=== PATIENT | male | born 1965 | race African-American/Black ===

== ENCOUNTER 2020-10-18 22:36 | Inpatient (IN) ==
[2020-10-18] MEDS ORDERED: ONDANSETRON 4 MG/2 ML VIAL IV STA (23:02)
[2020-10-19 01:10] LABS: INR 1.1; PT Patient Result 11.4 SECS (9.8-11.9)
[2020-10-19 01:21] LABS: Basophils % 0.4 % (0.0-0.8); Eosinophils # 0.1 10*3/uL (0.0-0.87); Eosinophils % 2.2 % (0.00-10.9); Hematocrit 21.7 VOL% (42.0-52.0); Immature Granulocytes % 0.4 %; Immature Granulocytes Absolute 0.02 #; Lymphocytes # 0.6 10*3/uL (1.4-4.0); Lymphocytes % 13.5 % (21.2-54.2); Mean Corpuscular HGB Conc 32.3 GM/DL (32-36); Mean Corpuscular Volume 96.9 FL (87-102); Mean Platelet Volume 11.2 FL (9.6-12.0); Monocytes % 6.7 % (1.7-12.7); Neutrophils % 76.8 % (38.7-73.9); Platelet Count 120 T/CUMM (130-400); Red Blood Count 2.24 MC/CUMM (3.8-5.5); Red Cell Distribution Width 16.4 % (9.3-17.3); White Blood Count 4.7 T/CUMM (4-12)
[2020-10-19 01:40] LABS: Albumin 3.9 G/DL (3.4-5.0); Bilirubin,Total 1.1 MG/DL (0.2-1.0); CKMB % 6.7 %; Calcium 10.6 MG/DL (8.5-10.1)
[2020-10-19 01:43] LABS: Troponin I 0.122 NG/ML (0.00-0.045)
[2020-10-19 01:44] LABS: Osmolality,Calculated 340.1 MOS/KG (273-304)
[2020-10-19] MEDS ORDERED: CALCIUM CHLORIDE 1,000 MG/10 ML SYRINGE IV STA ×2 (01:51→02:04)
[2020-10-19] MEDS ORDERED: INSULIN REGULAR 10 UNIT, CALCIUM GLUCONATE 1,000 MG in DEXTROSE 10% 250 ML IV ONE (01:53)
[2020-10-19] MEDS ORDERED: hydrALAZINE 20 MG/1 ML VIAL IV STA ×2 (02:10→02:12)
[2020-10-19] MEDS ORDERED: GLUCAGON 1 MG VIAL IM PRN (03:12)
[2020-10-19] MEDS ORDERED: DEXTROSE 50% 25 GM/50 ML VIAL IV PRN (03:12)
[2020-10-19] MEDS ORDERED: hydrALAZINE 20 MG/1 ML VIAL IV PRN (03:27)
[2020-10-19] MEDS ORDERED: guaiFENesin/DM ER 600-30 MG TABLET PO PRN (03:27)
[2020-10-19] MEDS ORDERED: NICOTINE 21 MG/24 HR PATCH TRANSDERM PRN (03:27)
[2020-10-19 04:44] LABS: Bacteria,Urine Few /HPF (Few); Bilirubin,Urine Negative (Negative); Blood, Urine Large mg/dL (Negative); Glucose,Urine (UA) Negative (Negative); Ketones,Urine Negative (Negative); Nitrite,Urine Negative (Negative); Protein,Urine 100 MG/DL; RBC,Urine 53 /HPF (0-4); Squamous Epithelial Cell,Urine Occasional /HPF (0-10); Urine Appearance CLOUDY (Clear); Urine Color Yellow (Yellow); Urine Specific Gravity 1.012 (1.001-1.035); Urine Urobilinogen < 2.0 EU/DL (0.2-1.0); WBC,Urine 82 /HPF (0-6)
[2020-10-19] MEDS ORDERED: SODIUM POLYSTYRENE SULFATE 15 GM/60 ML BOTTLE PO ONE (06:01)
[2020-10-19] MEDS: diphenhydrAMINE CAP 25 MG CAPSULE PO PRN (06:37)
[2020-10-19] MEDS ORDERED: SODIUM CHLORIDE 0.9% 1,000 ML IV PRN (07:16)
[2020-10-19] MEDS: cefTRIAXone 1,000 MG in SYRINGE 1 EACH IV SCH (07:48)
[2020-10-19 08:29] LABS: Basophils % 0.6 % (0.0-0.8); Eosinophils # 0.1 10*3/uL (0.0-0.87); Hemoglobin 6.8 GM/DL (14.0-18.0); Immature Granulocytes % 0.2 %; Immature Granulocytes Absolute 0.01 #; Lymphocytes # 0.5 10*3/uL (1.4-4.0); Lymphocytes % 9.9 % (21.2-54.2); Mean Corpuscular HGB Conc 32.4 GM/DL (32-36); Mean Corpuscular Volume 97.7 FL (87-102); Mean Platelet Volume 12.1 FL (9.6-12.0); Monocytes % 6.6 % (1.7-12.7); Neutrophils % 81.7 % (38.7-73.9); Platelet Count 102 T/CUMM (130-400); Red Blood Count 2.15 MC/CUMM (3.8-5.5); Red Cell Distribution Width 16.6 % (9.3-17.3); White Blood Count 4.8 T/CUMM (4-12)
[2020-10-19 09:11] LABS: Folate > 24.0 NG/ML (5.4-24.0); Vitamin B12 1006 PG/ML (211-911)
[2020-10-19 10:40] LABS: Ferritin 843.7 ng/ml (26-388)
[2020-10-19] MEDS ORDERED: HEPARIN 10,000 UNIT/10 ML VIAL IV SCH (11:00)
[2020-10-19 11:09] LABS: Calcium 10.7 MG/DL (8.5-10.1)
[2020-10-19 11:36] LABS: Hepatitis B Core IgM Quant 0.08 Index; Hepatitis B Surface Ag Quant < 0.10 Index; Hepatitis B Surface Ag Result Negative (Negative); Hepatitis C Virus Ab Quant < 0.02 Index; Hepatitis C Virus Ab Result Negative (Negative)
[2020-10-19] MEDS ORDERED: TUBERCULIN SKIN TEST 0.1 ML SYRINGE INTRADERM ONE (14:08)
[2020-10-19 15:34] LABS: Albumin 3.5 G/DL (3.4-5.0); Bilirubin,Total 0.8 MG/DL (0.2-1.0); Calcium 9.7 MG/DL (8.5-10.1); Osmolality,Calculated 309.8 MOS/KG (273-304); Total Protein 6.6 G/DL (6.4-8.3)
[2020-10-20] MEDS ORDERED: IRON SUCROSE 100 MG/5 ML VIAL IV SCH (07:30)
[2020-10-20] MEDS: cefTRIAXone 1,000 MG in SYRINGE 1 EACH IV SCH (09:12)
[2020-10-20] MEDS: ERGOCALCIFEROL 50,000 UNIT CAPSULE PO SCH (17:46)
[2020-10-20] MEDS: DULoxetine 20 MG CAPSULE PO SCH (20:36)
[2020-10-20] MEDS: GABAPENTIN 100 MG CAPSULE PO SCH (20:36)
[2020-10-20] MEDS: carvediloL 25 MG TABLET PO SCH (20:37)
[2020-10-21] MEDS: ASPIRIN EC 81 MG TABLET PO SCH (09:10)
[2020-10-21] MEDS: cefTRIAXone 1,000 MG in SYRINGE 1 EACH IV SCH (09:10)
[2020-10-21] MEDS: MULTIVITAMIN (BEROCCA) TABLET PO SCH (09:10)
[2020-10-21] MEDS: GABAPENTIN 100 MG CAPSULE PO SCH ×3 (09:10→21:42)
[2020-10-21] MEDS: ONDANSETRON 4 MG/2 ML VIAL IV PRN (09:14)
[2020-10-21] MEDS: carvediloL 25 MG TABLET PO SCH ×2 (09:14→21:42)
[2020-10-21 11:29] LABS: Basophils % 0.3 % (0.0-0.8); Eosinophils % 1.2 % (0.00-10.9); Hematocrit 28.7 VOL% (42.0-52.0); Hemoglobin 9.8 GM/DL (14.0-18.0); Immature Granulocytes % 0.3 %; Immature Granulocytes Absolute 0.01 #; Lymphocytes # 0.2 10*3/uL (1.4-4.0); Lymphocytes % 6.8 % (21.2-54.2); Mean Corpuscular HGB Conc 34.1 GM/DL (32-36); Mean Corpuscular Volume 92.3 FL (87-102); Mean Platelet Volume 11.7 FL (9.6-12.0); Monocytes % 6.5 % (1.7-12.7); Neutrophils % 84.9 % (38.7-73.9); Platelet Count 83 T/CUMM (130-400); Red Blood Count 3.11 MC/CUMM (3.8-5.5); Red Cell Distribution Width 15.8 % (9.3-17.3); White Blood Count 3.2 T/CUMM (4-12)
[2020-10-21 11:51] LABS: Calcium 9.2 MG/DL (8.5-10.1); Osmolality,Calculated 296.7 MOS/KG (273-304)
[2020-10-21] MEDS: DICLOFENAC 1% GEL 100 GM TUBE TOP SCH ×2 (15:38→21:42)
[2020-10-21] MEDS: DULoxetine 20 MG CAPSULE PO SCH (21:42)
[2020-10-22] MEDS: cefTRIAXone 1,000 MG in SYRINGE 1 EACH IV SCH (08:59)
[2020-10-22] MEDS: GABAPENTIN 100 MG CAPSULE PO SCH ×3 (09:00→21:42)
[2020-10-22] MEDS: carvediloL 25 MG TABLET PO SCH ×2 (09:00→21:36)
[2020-10-22] MEDS: ASPIRIN EC 81 MG TABLET PO SCH (09:00)
[2020-10-22] MEDS: MULTIVITAMIN (BEROCCA) TABLET PO SCH (09:00)
[2020-10-22] MEDS: DICLOFENAC 1% GEL 100 GM TUBE TOP SCH ×3 (09:01→21:43)
[2020-10-22] MEDS: diphenhydrAMINE CAP 25 MG CAPSULE PO PRN (21:42)
[2020-10-22] MEDS: DULoxetine 20 MG CAPSULE PO SCH (21:42)
[2020-10-23 07:28] LABS: Basophils % 0.4 % (0.0-0.8); Eosinophils # 0.1 10*3/uL (0.0-0.87); Eosinophils % 1.9 % (0.00-10.9); Hematocrit 24.8 VOL% (42.0-52.0); Hemoglobin 8.2 GM/DL (14.0-18.0); Immature Granulocytes % 0.6 %; Immature Granulocytes Absolute 0.03 #; Lymphocytes # 0.6 10*3/uL (1.4-4.0); Lymphocytes % 12.7 % (21.2-54.2); Mean Corpuscular HGB Conc 33.1 GM/DL (32-36); Mean Platelet Volume 11.6 FL (9.6-12.0); Monocytes % 9.4 % (1.7-12.7); Platelet Count 109 T/CUMM (130-400); Red Blood Count 2.61 MC/CUMM (3.8-5.5); Red Cell Distribution Width 15.9 % (9.3-17.3); White Blood Count 4.8 T/CUMM (4-12)
[2020-10-23 07:42] LABS: Osmolality,Calculated 304.5 MOS/KG (273-304)
[2020-10-23] MEDS: carvediloL 25 MG TABLET PO SCH (09:16)
[2020-10-23] MEDS: DICLOFENAC 1% GEL 100 GM TUBE TOP SCH ×3 (09:16→22:34)
[2020-10-23] MEDS: MULTIVITAMIN (BEROCCA) TABLET PO SCH (09:16)
[2020-10-23] MEDS: ASPIRIN EC 81 MG TABLET PO SCH (09:17)
[2020-10-23] MEDS: GABAPENTIN 100 MG CAPSULE PO SCH ×3 (09:17→21:05)
[2020-10-23] MEDS: cefTRIAXone 1,000 MG in SYRINGE 1 EACH IV SCH (09:18)
[2020-10-23] MEDS: DULoxetine 20 MG CAPSULE PO SCH (21:05)
[2020-10-23] MEDS: carvediloL 12.5 MG TABLET PO SCH (21:12)
[2020-10-23] MEDS: hydrALAZINE 25 MG TABLET PO SCH (21:12)
[2020-10-24] MEDS: MIDODRINE 5 MG TABLET PO PRN (08:57)
[2020-10-24 09:40] LABS: Basophils % 0.2 % (0.0-0.8); Eosinophils # 0.1 10*3/uL (0.0-0.87); Eosinophils % 2.1 % (0.00-10.9); Hematocrit 23.5 VOL% (42.0-52.0); Hemoglobin 7.7 GM/DL (14.0-18.0); Immature Granulocytes % 0.2 %; Immature Granulocytes Absolute 0.01 #; Lymphocytes # 0.8 10*3/uL (1.4-4.0); Lymphocytes % 15.6 % (21.2-54.2); Mean Corpuscular HGB Conc 32.8 GM/DL (32-36); Mean Corpuscular Volume 94.8 FL (87-102); Mean Platelet Volume 11.2 FL (9.6-12.0); Monocytes % 7.3 % (1.7-12.7); Neutrophils % 74.6 % (38.7-73.9); Platelet Count 116 T/CUMM (130-400); Red Blood Count 2.48 MC/CUMM (3.8-5.5); Red Cell Distribution Width 15.9 % (9.3-17.3); White Blood Count 4.8 T/CUMM (4-12)
[2020-10-24 10:01] LABS: Calcium 8.8 MG/DL (8.5-10.1); Osmolality,Calculated 297.5 MOS/KG (273-304)
[2020-10-24] MEDS: ASPIRIN EC 81 MG TABLET PO SCH (13:09)
[2020-10-24] MEDS: GABAPENTIN 100 MG CAPSULE PO SCH ×3 (13:09→21:15)
[2020-10-24] MEDS: MULTIVITAMIN (BEROCCA) TABLET PO SCH (13:09)
[2020-10-24] MEDS: carvediloL 12.5 MG TABLET PO SCH ×2 (13:09→21:18)
[2020-10-24] MEDS: DICLOFENAC 1% GEL 100 GM TUBE TOP SCH ×3 (13:09→21:19)
[2020-10-24] MEDS: hydrALAZINE 25 MG TABLET PO SCH ×2 (13:13→21:18)
[2020-10-24] MEDS: cefTRIAXone 1,000 MG in SYRINGE 1 EACH IV SCH (13:14)
[2020-10-24] MEDS: DULoxetine 20 MG CAPSULE PO SCH (21:15)
[2020-10-25 08:07] LABS: Basophils % 0.2 % (0.0-0.8); Eosinophils # 0.1 10*3/uL (0.0-0.87); Eosinophils % 2.2 % (0.00-10.9); Hematocrit 23.5 VOL% (42.0-52.0); Hemoglobin 7.8 GM/DL (14.0-18.0); Immature Granulocytes % 0.2 %; Immature Granulocytes Absolute 0.01 #; Lymphocytes # 0.8 10*3/uL (1.4-4.0); Lymphocytes % 17.8 % (21.2-54.2); Mean Corpuscular HGB Conc 33.2 GM/DL (32-36); Monocytes % 11.9 % (1.7-12.7); Neutrophils % 67.7 % (38.7-73.9); Platelet Count 105 T/CUMM (130-400); Red Cell Distribution Width 15.9 % (9.3-17.3); White Blood Count 4.6 T/CUMM (4-12)
[2020-10-25 08:35] LABS: Calcium 9.8 MG/DL (8.5-10.1)
[2020-10-25] MEDS: GABAPENTIN 100 MG CAPSULE PO SCH ×3 (10:00→21:39)
[2020-10-25] MEDS: ASPIRIN EC 81 MG TABLET PO SCH (10:00)
[2020-10-25] MEDS: cefTRIAXone 1,000 MG in SYRINGE 1 EACH IV SCH (10:01)
[2020-10-25] MEDS: MULTIVITAMIN (BEROCCA) TABLET PO SCH (10:01)
[2020-10-25] MEDS: carvediloL 12.5 MG TABLET PO SCH ×2 (10:01→21:39)
[2020-10-25] MEDS: hydrALAZINE 25 MG TABLET PO SCH ×2 (10:01→21:41)
[2020-10-25] MEDS: DICLOFENAC 1% GEL 100 GM TUBE TOP SCH ×3 (10:11→21:41)
[2020-10-25] MEDS: DULoxetine 20 MG CAPSULE PO SCH (21:39)
[2020-10-26] MEDS: ASPIRIN EC 81 MG TABLET PO SCH (09:04)
[2020-10-26] MEDS: MULTIVITAMIN (BEROCCA) TABLET PO SCH (09:04)
[2020-10-26] MEDS: GABAPENTIN 100 MG CAPSULE PO SCH ×3 (09:04→21:06)
[2020-10-26] MEDS: DICLOFENAC 1% GEL 100 GM TUBE TOP SCH ×3 (09:05→21:17)
[2020-10-26] MEDS: cefTRIAXone 1,000 MG in SYRINGE 1 EACH IV SCH (09:05)
[2020-10-26] MEDS: MIDODRINE 5 MG TABLET PO PRN (09:07)
[2020-10-26] MEDS: carvediloL 12.5 MG TABLET PO SCH ×2 (15:24→21:06)
[2020-10-26] MEDS: hydrALAZINE 25 MG TABLET PO SCH ×2 (15:24→21:06)
[2020-10-26] MEDS: DULoxetine 20 MG CAPSULE PO SCH (21:06)
[2020-10-27 08:34] LABS: Basophils % 0.4 % (0.0-0.8); Eosinophils # 0.1 10*3/uL (0.0-0.87); Eosinophils % 2.2 % (0.00-10.9); Hemoglobin 7.8 GM/DL (14.0-18.0); Immature Granulocytes % 0.4 %; Immature Granulocytes Absolute 0.02 #; Lymphocytes # 0.8 10*3/uL (1.4-4.0); Lymphocytes % 17.6 % (21.2-54.2); Mean Corpuscular HGB Conc 32.5 GM/DL (32-36); Mean Corpuscular Volume 97.2 FL (87-102); Monocytes % 13.1 % (1.7-12.7); Neutrophils % 66.3 % (38.7-73.9); Platelet Count 117 T/CUMM (130-400); Red Blood Count 2.47 MC/CUMM (3.8-5.5); White Blood Count 4.5 T/CUMM (4-12)
[2020-10-27 08:50] LABS: Calcium 9.8 MG/DL (8.5-10.1); Osmolality,Calculated 280.7 MOS/KG (273-304)
[2020-10-27] MEDS: GABAPENTIN 100 MG CAPSULE PO SCH ×3 (09:21→20:37)
[2020-10-27] MEDS: MULTIVITAMIN (BEROCCA) TABLET PO SCH (09:21)
[2020-10-27] MEDS: DICLOFENAC 1% GEL 100 GM TUBE TOP SCH ×3 (09:21→20:40)
[2020-10-27] MEDS: carvediloL 12.5 MG TABLET PO SCH ×2 (09:21→20:38)
[2020-10-27] MEDS: ASPIRIN EC 81 MG TABLET PO SCH (09:21)
[2020-10-27] MEDS: hydrALAZINE 25 MG TABLET PO SCH ×2 (09:21→20:37)
[2020-10-27] MEDS: ERGOCALCIFEROL 50,000 UNIT CAPSULE PO SCH (17:04)
[2020-10-27] MEDS: DULoxetine 20 MG CAPSULE PO SCH (20:38)
[2020-10-27] MEDS: ZALEPLON 5 MG CAPSULE PO PRN (23:07)
[2020-10-28] MEDS: carvediloL 12.5 MG TABLET PO SCH ×2 (09:13→23:01)
[2020-10-28] MEDS: MULTIVITAMIN (BEROCCA) TABLET PO SCH (09:13)
[2020-10-28] MEDS: GABAPENTIN 100 MG CAPSULE PO SCH ×3 (09:13→23:01)
[2020-10-28] MEDS: ASPIRIN EC 81 MG TABLET PO SCH (09:13)
[2020-10-28] MEDS: hydrALAZINE 25 MG TABLET PO SCH ×2 (09:13→23:01)
[2020-10-28] MEDS: DICLOFENAC 1% GEL 100 GM TUBE TOP SCH ×3 (09:13→23:03)
[2020-10-28] MEDS: MIDODRINE 5 MG TABLET PO PRN (10:53)
[2020-10-28 12:13] LABS: Basophils % 0.5 % (0.0-0.8); Eosinophils # 0.1 10*3/uL (0.0-0.87); Eosinophils % 1.5 % (0.00-10.9); Hematocrit 21.8 VOL% (42.0-52.0); Immature Granulocytes % 0.8 %; Immature Granulocytes Absolute 0.03 #; Lymphocytes # 0.7 10*3/uL (1.4-4.0); Lymphocytes % 17.8 % (21.2-54.2); Mean Corpuscular HGB Conc 32.1 GM/DL (32-36); Mean Corpuscular Volume 97.3 FL (87-102); Mean Platelet Volume 11.8 FL (9.6-12.0); Monocytes % 10.8 % (1.7-12.7); Neutrophils % 68.6 % (38.7-73.9); Platelet Count 118 T/CUMM (130-400); Red Blood Count 2.24 MC/CUMM (3.8-5.5); Red Cell Distribution Width 15.9 % (9.3-17.3)
[2020-10-28 12:38] LABS: Calcium 8.7 MG/DL (8.5-10.1); Osmolality,Calculated 280.4 MOS/KG (273-304)
[2020-10-28] MEDS: DULoxetine 20 MG CAPSULE PO SCH (23:01)
[2020-10-28] MEDS: ZALEPLON 5 MG CAPSULE PO PRN (23:07)
[2020-10-29] MEDS: GABAPENTIN 100 MG CAPSULE PO SCH ×3 (09:27→21:56)
[2020-10-29] MEDS: ASPIRIN EC 81 MG TABLET PO SCH (09:27)
[2020-10-29] MEDS: carvediloL 12.5 MG TABLET PO SCH ×2 (09:27→21:56)
[2020-10-29] MEDS: MULTIVITAMIN (BEROCCA) TABLET PO SCH (09:27)
[2020-10-29] MEDS: hydrALAZINE 25 MG TABLET PO SCH ×3 (09:27→21:57)
[2020-10-29] MEDS: DICLOFENAC 1% GEL 100 GM TUBE TOP SCH ×3 (09:28→21:56)
[2020-10-29] MEDS ORDERED: POTASSIUM CHLORIDE 20 MEQ TABLET PO ONE (10:37)
[2020-10-29] MEDS ORDERED: CALCIUM CARBONATE CHEW 500 MG TABLET PO PRN (10:38)
[2020-10-29] MEDS: ZALEPLON 5 MG CAPSULE PO PRN (21:56)
[2020-10-29] MEDS: DULoxetine 20 MG CAPSULE PO SCH (21:56)
[2020-10-30] MEDS: ASPIRIN EC 81 MG TABLET PO SCH (09:29)
[2020-10-30] MEDS: GABAPENTIN 100 MG CAPSULE PO SCH ×3 (09:29→21:50)
[2020-10-30] MEDS: MULTIVITAMIN (BEROCCA) TABLET PO SCH (09:29)
[2020-10-30] MEDS: hydrALAZINE 25 MG TABLET PO SCH ×2 (09:31→21:55)
[2020-10-30] MEDS: carvediloL 12.5 MG TABLET PO SCH ×2 (09:31→21:50)
[2020-10-30] MEDS: DICLOFENAC 1% GEL 100 GM TUBE TOP SCH ×3 (10:04→21:51)
[2020-10-30] MEDS: ACETAMINOPHEN 325 MG TABLET PO PRN (11:55)
[2020-10-30] MEDS: DULoxetine 20 MG CAPSULE PO SCH (21:50)
[2020-10-31] MEDS: GABAPENTIN 100 MG CAPSULE PO SCH ×3 (08:40→21:16)
[2020-10-31] MEDS: MIDODRINE 5 MG TABLET PO PRN (08:40)
[2020-10-31] MEDS: DICLOFENAC 1% GEL 100 GM TUBE TOP SCH ×3 (09:30→21:17)
[2020-10-31 10:20] LABS: Calcium 9.5 MG/DL (8.5-10.1); Osmolality,Calculated 279.7 MOS/KG (273-304)
[2020-10-31] MEDS: ASPIRIN EC 81 MG TABLET PO SCH (12:58)
[2020-10-31] MEDS: hydrALAZINE 25 MG TABLET PO SCH ×2 (12:58→21:15)
[2020-10-31] MEDS: carvediloL 12.5 MG TABLET PO SCH ×2 (12:58→21:16)
[2020-10-31] MEDS: MULTIVITAMIN (BEROCCA) TABLET PO SCH (12:58)
[2020-10-31] MEDS: DULoxetine 20 MG CAPSULE PO SCH (21:16)
[2020-11-01] MEDS: hydrALAZINE 25 MG TABLET PO SCH ×2 (08:50→20:31)
[2020-11-01] MEDS: carvediloL 12.5 MG TABLET PO SCH ×2 (08:57→20:31)
[2020-11-01] MEDS: ASPIRIN EC 81 MG TABLET PO SCH (08:57)
[2020-11-01] MEDS: GABAPENTIN 100 MG CAPSULE PO SCH ×3 (08:57→20:32)
[2020-11-01] MEDS: DICLOFENAC 1% GEL 100 GM TUBE TOP SCH ×3 (08:57→20:32)
[2020-11-01] MEDS: MULTIVITAMIN (BEROCCA) TABLET PO SCH (08:57)
[2020-11-01] MEDS ORDERED: EPOETIN ALFA-EPBX 10,000 UNIT/ML VIAL IV PRN (17:12)
[2020-11-01] MEDS: DULoxetine 20 MG CAPSULE PO SCH (20:32)
[2020-11-02 08:35] LABS: % Iron Saturation 24.2 % (18-50); Ferritin 716.9 ng/ml (26-388)
[2020-11-02] MEDS: ASPIRIN EC 81 MG TABLET PO SCH (12:36)
[2020-11-02] MEDS: GABAPENTIN 100 MG CAPSULE PO SCH ×3 (12:36→20:15)
[2020-11-02] MEDS: MULTIVITAMIN (BEROCCA) TABLET PO SCH (12:36)
[2020-11-02] MEDS: carvediloL 12.5 MG TABLET PO SCH ×2 (12:36→20:01)
[2020-11-02] MEDS: hydrALAZINE 25 MG TABLET PO SCH ×2 (13:02→20:01)
[2020-11-02] MEDS: DICLOFENAC 1% GEL 100 GM TUBE TOP SCH ×3 (13:05→20:15)
[2020-11-02] MEDS: MIDODRINE 5 MG TABLET PO PRN (16:45)
[2020-11-02] MEDS: DULoxetine 20 MG CAPSULE PO SCH (20:15)
[2020-11-03] MEDS: GABAPENTIN 100 MG CAPSULE PO SCH ×3 (08:39→20:57)
[2020-11-03] MEDS: MULTIVITAMIN (BEROCCA) TABLET PO SCH (08:39)
[2020-11-03] MEDS: ASPIRIN EC 81 MG TABLET PO SCH (08:39)
[2020-11-03] MEDS: hydrALAZINE 25 MG TABLET PO SCH ×2 (08:39→20:58)
[2020-11-03] MEDS: carvediloL 12.5 MG TABLET PO SCH ×2 (08:39→20:58)
[2020-11-03] MEDS: DICLOFENAC 1% GEL 100 GM TUBE TOP SCH ×3 (08:43→21:13)
[2020-11-03] MEDS ORDERED: SODIUM CHLORIDE 0.9% 1,000 ML IV PRN (09:00)
[2020-11-03] MEDS: ERGOCALCIFEROL 50,000 UNIT CAPSULE PO SCH (17:38)
[2020-11-03] MEDS: DULoxetine 20 MG CAPSULE PO SCH (20:58)
[2020-11-04] MEDS: MULTIVITAMIN (BEROCCA) TABLET PO SCH (09:48)
[2020-11-04] MEDS: ASPIRIN EC 81 MG TABLET PO SCH (09:48)
[2020-11-04] MEDS: MIDODRINE 5 MG TABLET PO PRN (09:55)
[2020-11-04] MEDS: carvediloL 12.5 MG TABLET PO SCH ×2 (09:55→22:11)
[2020-11-04] MEDS: GABAPENTIN 100 MG CAPSULE PO SCH ×3 (09:56→22:11)
[2020-11-04] MEDS: hydrALAZINE 25 MG TABLET PO SCH ×2 (09:56→22:11)
[2020-11-04] MEDS: DICLOFENAC 1% GEL 100 GM TUBE TOP SCH ×3 (10:01→21:45)
[2020-11-04] MEDS: diphenhydrAMINE CAP 25 MG CAPSULE PO PRN (14:51)
[2020-11-04] MEDS: DULoxetine 20 MG CAPSULE PO SCH (22:11)
[2020-11-05] MEDS: DICLOFENAC 1% GEL 100 GM TUBE TOP SCH ×3 (09:29→21:57)
[2020-11-05] MEDS: GABAPENTIN 100 MG CAPSULE PO SCH ×3 (09:30→21:42)
[2020-11-05] MEDS: carvediloL 12.5 MG TABLET PO SCH ×2 (09:31→21:42)
[2020-11-05] MEDS: ASPIRIN EC 81 MG TABLET PO SCH (09:31)
[2020-11-05] MEDS: hydrALAZINE 25 MG TABLET PO SCH ×2 (09:31→21:42)
[2020-11-05] MEDS: MULTIVITAMIN (BEROCCA) TABLET PO SCH (09:31)
[2020-11-05] MEDS: LACTULOSE 20 GM/30 ML UDCUP PO PRN (19:05)
[2020-11-05] MEDS: diphenhydrAMINE CAP 25 MG CAPSULE PO PRN (21:42)
[2020-11-05] MEDS: DULoxetine 20 MG CAPSULE PO SCH (21:42)
[2020-11-06] MEDS: MULTIVITAMIN (BEROCCA) TABLET PO SCH (09:57)
[2020-11-06] MEDS: GABAPENTIN 100 MG CAPSULE PO SCH ×3 (09:57→21:49)
[2020-11-06] MEDS: ASPIRIN EC 81 MG TABLET PO SCH (09:57)
[2020-11-06] MEDS: carvediloL 12.5 MG TABLET PO SCH ×2 (09:58→21:49)
[2020-11-06] MEDS: DICLOFENAC 1% GEL 100 GM TUBE TOP SCH ×3 (09:58→21:51)
[2020-11-06] MEDS: hydrALAZINE 25 MG TABLET PO SCH ×2 (09:58→21:50)
[2020-11-06] MEDS: LACTULOSE 20 GM/30 ML UDCUP PO PRN (09:58)
[2020-11-06] MEDS: ACETAMINOPHEN 325 MG TABLET PO PRN (12:15)
[2020-11-06] MEDS: DULoxetine 20 MG CAPSULE PO SCH (21:50)
[2020-11-06] MEDS: diphenhydrAMINE CAP 25 MG CAPSULE PO PRN (21:50)
[2020-11-07] MEDS: MIDODRINE 5 MG TABLET PO PRN (09:08)
[2020-11-07 10:40] LABS: Basophils % 0.5 % (0.0-0.8); Eosinophils # 0.1 10*3/uL (0.0-0.87); Eosinophils % 1.9 % (0.00-10.9); Hematocrit 25.7 VOL% (42.0-52.0); Immature Granulocytes % 0.5 %; Immature Granulocytes Absolute 0.02 #; Lymphocytes # 0.8 10*3/uL (1.4-4.0); Mean Corpuscular HGB Conc 31.1 GM/DL (32-36); Mean Corpuscular Volume 103.2 FL (87-102); Mean Platelet Volume 11.2 FL (9.6-12.0); Monocytes % 7.1 % (1.7-12.7); Platelet Count 120 T/CUMM (130-400); Red Blood Count 2.49 MC/CUMM (3.8-5.5); Red Cell Distribution Width 16.7 % (9.3-17.3); White Blood Count 3.6 T/CUMM (4-12)
[2020-11-07 10:58] LABS: Calcium 9.2 MG/DL (8.5-10.1); Hypochromasia 2+; Osmolality,Calculated 284.4 MOS/KG (273-304)
[2020-11-07] MEDS: MULTIVITAMIN (BEROCCA) TABLET PO SCH (12:39)
[2020-11-07] MEDS: diphenhydrAMINE CAP 25 MG CAPSULE PO PRN (12:39)
[2020-11-07] MEDS: GABAPENTIN 100 MG CAPSULE PO SCH ×3 (12:39→21:49)
[2020-11-07] MEDS: ASPIRIN EC 81 MG TABLET PO SCH (12:39)
[2020-11-07] MEDS: DICLOFENAC 1% GEL 100 GM TUBE TOP SCH ×3 (12:41→21:49)
[2020-11-07] MEDS: carvediloL 12.5 MG TABLET PO SCH ×2 (12:43→21:49)
[2020-11-07] MEDS: hydrALAZINE 25 MG TABLET PO SCH ×2 (12:43→22:30)
[2020-11-07] MEDS: DULoxetine 20 MG CAPSULE PO SCH (21:49)
[2020-11-08] MEDS: ASPIRIN EC 81 MG TABLET PO SCH (08:39)
[2020-11-08] MEDS: GABAPENTIN 100 MG CAPSULE PO SCH ×3 (08:39→21:10)
[2020-11-08] MEDS: MULTIVITAMIN (BEROCCA) TABLET PO SCH (08:39)
[2020-11-08] MEDS: carvediloL 12.5 MG TABLET PO SCH ×2 (08:39→21:11)
[2020-11-08] MEDS: DICLOFENAC 1% GEL 100 GM TUBE TOP SCH ×3 (08:40→21:11)
[2020-11-08] MEDS: hydrALAZINE 25 MG TABLET PO SCH ×2 (08:40→21:11)
[2020-11-08] MEDS: DULoxetine 20 MG CAPSULE PO SCH (21:10)
[2020-11-08] MEDS: ZALEPLON 5 MG CAPSULE PO PRN (22:33)
[2020-11-09] MEDS: MIDODRINE 5 MG TABLET PO PRN (07:38)
[2020-11-09] MEDS: DICLOFENAC 1% GEL 100 GM TUBE TOP SCH ×4 (07:40→21:31)
[2020-11-09] MEDS: diphenhydrAMINE CAP 25 MG CAPSULE PO PRN (09:10)
[2020-11-09 10:07] LABS: Basophils % 0.5 % (0.0-0.8); Eosinophils # 0.1 10*3/uL (0.0-0.87); Eosinophils % 1.9 % (0.00-10.9); Hematocrit 26.2 VOL% (42.0-52.0); Hemoglobin 8.2 GM/DL (14.0-18.0); Immature Granulocytes % 0.3 %; Immature Granulocytes Absolute 0.01 #; Lymphocytes # 0.8 10*3/uL (1.4-4.0); Lymphocytes % 21.5 % (21.2-54.2); Mean Corpuscular HGB Conc 31.3 GM/DL (32-36); Mean Corpuscular Volume 102.7 FL (87-102); Mean Platelet Volume 11.3 FL (9.6-12.0); Monocytes % 9.5 % (1.7-12.7); Neutrophils % 66.3 % (38.7-73.9); Platelet Count 110 T/CUMM (130-400); Red Blood Count 2.55 MC/CUMM (3.8-5.5); Red Cell Distribution Width 17.2 % (9.3-17.3); White Blood Count 3.7 T/CUMM (4-12)
[2020-11-09 10:35] LABS: Calcium 9.1 MG/DL (8.5-10.1); Osmolality,Calculated 281.5 MOS/KG (273-304)
[2020-11-09] MEDS: GABAPENTIN 100 MG CAPSULE PO SCH ×3 (13:17→21:28)
[2020-11-09] MEDS: ASPIRIN EC 81 MG TABLET PO SCH (13:17)
[2020-11-09] MEDS: hydrALAZINE 25 MG TABLET PO SCH ×2 (13:18→21:31)
[2020-11-09] MEDS: MULTIVITAMIN (BEROCCA) TABLET PO SCH (13:18)
[2020-11-09] MEDS: carvediloL 12.5 MG TABLET PO SCH ×2 (13:18→21:31)
[2020-11-09] MEDS: ZALEPLON 5 MG CAPSULE PO PRN (21:28)
[2020-11-09] MEDS: DULoxetine 20 MG CAPSULE PO SCH (21:30)
[2020-11-10 08:49] LABS: Basophils % 0.9 % (0.0-0.8); Eosinophils # 0.1 10*3/uL (0.0-0.87); Eosinophils % 2.3 % (0.00-10.9); Hematocrit 28.1 VOL% (42.0-52.0); Hemoglobin 8.8 GM/DL (14.0-18.0); Immature Granulocytes % 0.3 %; Immature Granulocytes Absolute 0.01 #; Lymphocytes # 0.9 10*3/uL (1.4-4.0); Lymphocytes % 26.1 % (21.2-54.2); Mean Corpuscular HGB Conc 31.3 GM/DL (32-36); Mean Corpuscular Volume 102.6 FL (87-102); Mean Platelet Volume 11.4 FL (9.6-12.0); Monocytes % 11.7 % (1.7-12.7); Neutrophils % 58.7 % (38.7-73.9); Platelet Count 120 T/CUMM (130-400); Red Blood Count 2.74 MC/CUMM (3.8-5.5); Red Cell Distribution Width 17.6 % (9.3-17.3); White Blood Count 3.4 T/CUMM (4-12)
[2020-11-10] MEDS: GABAPENTIN 100 MG CAPSULE PO SCH ×3 (08:51→21:11)
[2020-11-10] MEDS: hydrALAZINE 25 MG TABLET PO SCH ×2 (08:51→21:11)
[2020-11-10] MEDS: MULTIVITAMIN (BEROCCA) TABLET PO SCH (08:51)
[2020-11-10] MEDS: ASPIRIN EC 81 MG TABLET PO SCH (08:51)
[2020-11-10] MEDS: carvediloL 12.5 MG TABLET PO SCH ×2 (08:51→21:11)
[2020-11-10] MEDS: DICLOFENAC 1% GEL 100 GM TUBE TOP SCH ×3 (08:54→21:12)
[2020-11-10 09:08] LABS: Calcium 9.8 MG/DL (8.5-10.1); Osmolality,Calculated 284.5 MOS/KG (273-304)
[2020-11-10] MEDS: AMMONIUM LACTATE 12% LOTION 240 ML BOTTLE TOP SCH ×2 (12:59→21:12)
[2020-11-10] MEDS: ACETAMINOPHEN 325 MG TABLET PO PRN (17:34)
[2020-11-10] MEDS: ERGOCALCIFEROL 50,000 UNIT CAPSULE PO SCH (17:35)
[2020-11-10] MEDS: DULoxetine 20 MG CAPSULE PO SCH (21:11)
[2020-11-11] MEDS: ASPIRIN EC 81 MG TABLET PO SCH (08:25)
[2020-11-11] MEDS: MULTIVITAMIN (BEROCCA) TABLET PO SCH (08:26)
[2020-11-11] MEDS: hydrALAZINE 25 MG TABLET PO SCH ×2 (08:26→20:58)
[2020-11-11] MEDS: carvediloL 12.5 MG TABLET PO SCH ×2 (08:26→20:58)
[2020-11-11] MEDS: GABAPENTIN 100 MG CAPSULE PO SCH ×3 (08:26→20:57)
[2020-11-11] MEDS: AMMONIUM LACTATE 12% LOTION 240 ML BOTTLE TOP SCH ×2 (08:27→20:59)
[2020-11-11] MEDS: DICLOFENAC 1% GEL 100 GM TUBE TOP SCH ×3 (08:28→20:58)
[2020-11-11] MEDS: DULoxetine 20 MG CAPSULE PO SCH (20:58)
[2020-11-12] MEDS: GABAPENTIN 100 MG CAPSULE PO SCH ×3 (08:55→21:31)
[2020-11-12] MEDS: hydrALAZINE 25 MG TABLET PO SCH ×2 (08:55→21:31)
[2020-11-12] MEDS: ASPIRIN EC 81 MG TABLET PO SCH (08:55)
[2020-11-12] MEDS: carvediloL 12.5 MG TABLET PO SCH ×2 (08:55→21:31)
[2020-11-12] MEDS: MULTIVITAMIN (BEROCCA) TABLET PO SCH (08:55)
[2020-11-12] MEDS: DICLOFENAC 1% GEL 100 GM TUBE TOP SCH ×3 (08:56→21:59)
[2020-11-12] MEDS: AMMONIUM LACTATE 12% LOTION 240 ML BOTTLE TOP SCH ×2 (08:56→21:59)
[2020-11-12] MEDS: DULoxetine 20 MG CAPSULE PO SCH ×2 (17:18→21:31)
[2020-11-12] MEDS: ZALEPLON 5 MG CAPSULE PO SCH (21:31)
[2020-11-13] MEDS: DICLOFENAC 1% GEL 100 GM TUBE TOP SCH ×3 (09:05→20:16)
[2020-11-13] MEDS: ASPIRIN EC 81 MG TABLET PO SCH (09:06)
[2020-11-13] MEDS: GABAPENTIN 100 MG CAPSULE PO SCH ×3 (09:06→20:15)
[2020-11-13] MEDS: MULTIVITAMIN (BEROCCA) TABLET PO SCH (09:06)
[2020-11-13] MEDS: carvediloL 12.5 MG TABLET PO SCH ×2 (09:07→20:16)
[2020-11-13] MEDS: hydrALAZINE 25 MG TABLET PO SCH ×2 (09:07→20:16)
[2020-11-13] MEDS: AMMONIUM LACTATE 12% LOTION 240 ML BOTTLE TOP SCH ×2 (09:10→20:16)
[2020-11-13] MEDS: DULoxetine 20 MG CAPSULE PO SCH (20:14)
[2020-11-13] MEDS: ZALEPLON 5 MG CAPSULE PO SCH (20:15)
[2020-11-14] MEDS: diphenhydrAMINE CAP 25 MG CAPSULE PO PRN ×2 (05:56→20:34)
[2020-11-14] MEDS: MIDODRINE 5 MG TABLET PO PRN (08:11)
[2020-11-14] MEDS: GABAPENTIN 100 MG CAPSULE PO SCH ×3 (13:51→20:25)
[2020-11-14] MEDS: carvediloL 12.5 MG TABLET PO SCH ×2 (13:51→20:25)
[2020-11-14] MEDS: hydrALAZINE 25 MG TABLET PO SCH ×2 (13:51→20:25)
[2020-11-14] MEDS: DICLOFENAC 1% GEL 100 GM TUBE TOP SCH ×3 (13:52→20:25)
[2020-11-14] MEDS: MULTIVITAMIN (BEROCCA) TABLET PO SCH (14:38)
[2020-11-14] MEDS: ASPIRIN EC 81 MG TABLET PO SCH (14:38)
[2020-11-14] MEDS: AMMONIUM LACTATE 12% LOTION 240 ML BOTTLE TOP SCH ×2 (14:39→20:25)
[2020-11-14] MEDS: ZALEPLON 5 MG CAPSULE PO SCH (20:24)
[2020-11-14] MEDS: DULoxetine 20 MG CAPSULE PO SCH (20:24)
[2020-11-15] MEDS: MULTIVITAMIN (BEROCCA) TABLET PO SCH (09:13)
[2020-11-15] MEDS: carvediloL 12.5 MG TABLET PO SCH ×2 (09:14→21:33)
[2020-11-15] MEDS: GABAPENTIN 100 MG CAPSULE PO SCH ×3 (09:14→21:32)
[2020-11-15] MEDS: hydrALAZINE 25 MG TABLET PO SCH ×2 (09:14→21:32)
[2020-11-15] MEDS: ASPIRIN EC 81 MG TABLET PO SCH (09:14)
[2020-11-15] MEDS: DICLOFENAC 1% GEL 100 GM TUBE TOP SCH ×3 (09:15→21:34)
[2020-11-15] MEDS: AMMONIUM LACTATE 12% LOTION 240 ML BOTTLE TOP SCH ×2 (09:15→21:32)
[2020-11-15] MEDS: ZALEPLON 5 MG CAPSULE PO SCH (21:32)
[2020-11-15] MEDS: DULoxetine 20 MG CAPSULE PO SCH (21:32)
[2020-11-16] MEDS: GABAPENTIN 100 MG CAPSULE PO SCH ×3 (18:32→21:00)
[2020-11-16] MEDS: MULTIVITAMIN (BEROCCA) TABLET PO SCH (18:32)
[2020-11-16] MEDS: DICLOFENAC 1% GEL 100 GM TUBE TOP SCH ×4 (18:32→21:00)
[2020-11-16] MEDS: ASPIRIN EC 81 MG TABLET PO SCH (18:32)
[2020-11-16] MEDS: AMMONIUM LACTATE 12% LOTION 240 ML BOTTLE TOP SCH (18:33)
[2020-11-16] MEDS: carvediloL 12.5 MG TABLET PO SCH ×2 (18:41→21:00)
[2020-11-16] MEDS: hydrALAZINE 25 MG TABLET PO SCH ×2 (18:44→21:00)
[2020-11-16] MEDS: ZALEPLON 5 MG CAPSULE PO SCH (21:00)
[2020-11-16] MEDS: DULoxetine 20 MG CAPSULE PO SCH (21:00)
[2020-11-16] MEDS: diphenhydrAMINE CAP 25 MG CAPSULE PO PRN (23:57)
[2020-11-17 08:48] LABS: Hepatitis B Core IgM Quant 0.11 Index; Hepatitis B Surface Ag Quant < 0.10 Index; Hepatitis B Surface Ag Result Negative (Negative); Hepatitis C Virus Ab Quant 0.06 Index; Hepatitis C Virus Ab Result Negative (Negative)
[2020-11-17] MEDS: DICLOFENAC 1% GEL 100 GM TUBE TOP SCH ×3 (09:56→21:35)
[2020-11-17] MEDS: AMMONIUM LACTATE 12% LOTION 240 ML BOTTLE TOP SCH ×3 (09:56→21:34)
[2020-11-17] MEDS: hydrALAZINE 25 MG TABLET PO SCH ×2 (09:59→21:27)
[2020-11-17] MEDS: carvediloL 12.5 MG TABLET PO SCH ×2 (10:00→21:27)
[2020-11-17] MEDS: ASPIRIN EC 81 MG TABLET PO SCH (10:00)
[2020-11-17] MEDS: MULTIVITAMIN (BEROCCA) TABLET PO SCH (10:00)
[2020-11-17] MEDS: GABAPENTIN 100 MG CAPSULE PO SCH ×3 (10:00→21:27)
[2020-11-17] MEDS: HEPARIN 5,000 UNIT/1 ML VIAL SUBCUT SCH ×2 (10:52→22:52)
[2020-11-17] MEDS: ERGOCALCIFEROL 50,000 UNIT CAPSULE PO SCH (16:30)
[2020-11-17] MEDS: ZALEPLON 5 MG CAPSULE PO SCH (21:27)
[2020-11-17] MEDS: DULoxetine 20 MG CAPSULE PO SCH (21:30)
[2020-11-18] MEDS: hydrALAZINE 25 MG TABLET PO SCH ×2 (09:57→21:08)
[2020-11-18] MEDS: MULTIVITAMIN (BEROCCA) TABLET PO SCH (09:57)
[2020-11-18] MEDS: GABAPENTIN 100 MG CAPSULE PO SCH ×3 (09:57→21:08)
[2020-11-18] MEDS: carvediloL 12.5 MG TABLET PO SCH ×2 (09:57→21:08)
[2020-11-18] MEDS: AMMONIUM LACTATE 12% LOTION 240 ML BOTTLE TOP SCH ×2 (09:57→21:09)
[2020-11-18] MEDS: DICLOFENAC 1% GEL 100 GM TUBE TOP SCH ×3 (09:57→21:09)
[2020-11-18] MEDS: HEPARIN 5,000 UNIT/1 ML VIAL SUBCUT SCH ×2 (10:00→22:36)
[2020-11-18] MEDS: ZALEPLON 5 MG CAPSULE PO SCH (21:08)
[2020-11-18] MEDS: DULoxetine 20 MG CAPSULE PO SCH (21:08)
[2020-11-19] MEDS: hydrALAZINE 25 MG TABLET PO SCH ×2 (08:49→20:56)
[2020-11-19] MEDS: AMMONIUM LACTATE 12% LOTION 240 ML BOTTLE TOP SCH ×2 (08:49→20:55)
[2020-11-19] MEDS: GABAPENTIN 100 MG CAPSULE PO SCH ×3 (08:49→20:56)
[2020-11-19] MEDS: MULTIVITAMIN (BEROCCA) TABLET PO SCH (08:49)
[2020-11-19] MEDS: DICLOFENAC 1% GEL 100 GM TUBE TOP SCH ×3 (08:49→20:54)
[2020-11-19] MEDS: carvediloL 12.5 MG TABLET PO SCH ×2 (10:40→20:56)
[2020-11-19] MEDS: HEPARIN 5,000 UNIT/1 ML VIAL SUBCUT SCH ×2 (10:41→22:36)
[2020-11-19] MEDS: ZALEPLON 5 MG CAPSULE PO SCH (20:55)
[2020-11-19] MEDS: ACETAMINOPHEN 325 MG TABLET PO PRN (20:55)
[2020-11-19] MEDS: DULoxetine 20 MG CAPSULE PO SCH (20:55)
[2020-11-20 08:05] LABS: Basophils % 0.4 % (0.0-0.8); Eosinophils # 0.1 10*3/uL (0.0-0.87); Eosinophils % 1.6 % (0.00-10.9); Hematocrit 28.3 VOL% (42.0-52.0); Hemoglobin 8.8 GM/DL (14.0-18.0); Immature Granulocytes % 0.4 %; Immature Granulocytes Absolute 0.02 #; Lymphocytes % 20.3 % (21.2-54.2); Mean Corpuscular HGB Conc 31.1 GM/DL (32-36); Mean Corpuscular Volume 104.8 FL (87-102); Mean Platelet Volume 10.7 FL (9.6-12.0); Monocytes % 9.5 % (1.7-12.7); Neutrophils % 67.8 % (38.7-73.9); Platelet Count 136 T/CUMM (130-400); Red Cell Distribution Width 17.6 % (9.3-17.3)
[2020-11-20 08:28] LABS: Calcium 10.2 MG/DL (8.5-10.1); Osmolality,Calculated 305.4 MOS/KG (273-304)
[2020-11-20] MEDS ORDERED: DEXTROSE 50% 25 GM/50 ML VIAL IV PRN (09:29)
[2020-11-20] MEDS ORDERED: INSULIN REGULAR 100 UNIT/ML IV ONE (09:30)
[2020-11-20] MEDS ORDERED: SODIUM POLYSTYRENE SULFATE 15 GM/60 ML BOTTLE PO ONE (09:43)
[2020-11-20] MEDS ORDERED: CALCIUM GLUCONATE 2,000 MG in SODIUM CHLORIDE 0.9% 100 ML IV ONE (10:15)
[2020-11-20] MEDS: GABAPENTIN 100 MG CAPSULE PO SCH ×3 (10:17→20:48)
[2020-11-20] MEDS: carvediloL 12.5 MG TABLET PO SCH ×2 (10:17→20:47)
[2020-11-20] MEDS: hydrALAZINE 25 MG TABLET PO SCH ×2 (10:17→20:47)
[2020-11-20] MEDS: MULTIVITAMIN (BEROCCA) TABLET PO SCH (10:17)
[2020-11-20] MEDS: DICLOFENAC 1% GEL 100 GM TUBE TOP SCH ×3 (10:18→20:48)
[2020-11-20] MEDS: AMMONIUM LACTATE 12% LOTION 240 ML BOTTLE TOP SCH ×2 (10:18→20:48)
[2020-11-20] MEDS: HEPARIN 5,000 UNIT/1 ML VIAL SUBCUT SCH ×2 (11:55→22:31)
[2020-11-20] MEDS: DULoxetine 20 MG CAPSULE PO SCH (20:48)
[2020-11-21] MEDS: ONDANSETRON 4 MG/2 ML VIAL IV PRN (01:33)
[2020-11-21] MEDS: AMMONIUM LACTATE 12% LOTION 240 ML BOTTLE TOP SCH ×2 (09:50→20:39)
[2020-11-21] MEDS: DICLOFENAC 1% GEL 100 GM TUBE TOP SCH ×3 (09:50→20:39)
[2020-11-21] MEDS: GABAPENTIN 100 MG CAPSULE PO SCH ×3 (09:50→20:38)
[2020-11-21] MEDS: MULTIVITAMIN (BEROCCA) TABLET PO SCH (09:50)
[2020-11-21] MEDS: carvediloL 12.5 MG TABLET PO SCH ×2 (09:50→20:39)
[2020-11-21] MEDS: hydrALAZINE 25 MG TABLET PO SCH ×2 (09:50→20:39)
[2020-11-21 10:56] LABS: Basophils % 0.7 % (0.0-0.8); Eosinophils # 0.1 10*3/uL (0.0-0.87); Eosinophils % 1.6 % (0.00-10.9); Hematocrit 27.1 VOL% (42.0-52.0); Hemoglobin 8.5 GM/DL (14.0-18.0); Immature Granulocytes % 0.7 %; Immature Granulocytes Absolute 0.03 #; Lymphocytes # 0.7 10*3/uL (1.4-4.0); Lymphocytes % 16.9 % (21.2-54.2); Mean Corpuscular HGB Conc 31.4 GM/DL (32-36); Mean Corpuscular Volume 105.4 FL (87-102); Mean Platelet Volume 10.3 FL (9.6-12.0); Monocytes % 10.5 % (1.7-12.7); Neutrophils % 69.6 % (38.7-73.9); Platelet Count 126 T/CUMM (130-400); Red Blood Count 2.57 MC/CUMM (3.8-5.5); Red Cell Distribution Width 17.8 % (9.3-17.3); White Blood Count 4.4 T/CUMM (4-12)
[2020-11-21 11:21] LABS: Calcium 10.4 MG/DL (8.5-10.1)
[2020-11-21] MEDS: HEPARIN 5,000 UNIT/1 ML VIAL SUBCUT SCH ×2 (12:39→22:41)
[2020-11-21] MEDS: DULoxetine 20 MG CAPSULE PO SCH (20:39)
[2020-11-22] MEDS: hydrALAZINE 25 MG TABLET PO SCH ×2 (10:46→20:56)
[2020-11-22] MEDS: MULTIVITAMIN (BEROCCA) TABLET PO SCH (10:46)
[2020-11-22] MEDS: GABAPENTIN 100 MG CAPSULE PO SCH ×3 (10:47→20:56)
[2020-11-22] MEDS: carvediloL 12.5 MG TABLET PO SCH ×2 (10:47→20:56)
[2020-11-22] MEDS: DICLOFENAC 1% GEL 100 GM TUBE TOP SCH ×3 (10:48→20:55)
[2020-11-22] MEDS: AMMONIUM LACTATE 12% LOTION 240 ML BOTTLE TOP SCH ×2 (10:48→20:55)
[2020-11-22] MEDS: HEPARIN 5,000 UNIT/1 ML VIAL SUBCUT SCH ×2 (11:01→23:20)
[2020-11-22 14:29] LABS: Basophils % 0.6 % (0.0-0.8); Eosinophils # 0.1 10*3/uL (0.0-0.87); Hematocrit 26.1 VOL% (42.0-52.0); Hemoglobin 8.2 GM/DL (14.0-18.0); Immature Granulocytes % 0.3 %; Immature Granulocytes Absolute 0.01 #; Lymphocytes # 0.8 10*3/uL (1.4-4.0); Lymphocytes % 21.8 % (21.2-54.2); Mean Corpuscular HGB Conc 31.4 GM/DL (32-36); Mean Corpuscular Volume 105.7 FL (87-102); Mean Platelet Volume 10.4 FL (9.6-12.0); Neutrophils % 68.3 % (38.7-73.9); Platelet Count 118 T/CUMM (130-400); Red Blood Count 2.47 MC/CUMM (3.8-5.5); Red Cell Distribution Width 17.7 % (9.3-17.3); White Blood Count 3.4 T/CUMM (4-12)
[2020-11-22 14:51] LABS: Calcium 9.1 MG/DL (8.5-10.1); Osmolality,Calculated 297.3 MOS/KG (273-304)
[2020-11-22] MEDS: DULoxetine 20 MG CAPSULE PO SCH (20:56)
[2020-11-23 08:14] LABS: Basophils % 0.9 % (0.0-0.8); Eosinophils # 0.1 10*3/uL (0.0-0.87); Eosinophils % 1.7 % (0.00-10.9); Hematocrit 28.1 VOL% (42.0-52.0); Hemoglobin 8.7 GM/DL (14.0-18.0); Immature Granulocytes % 0.4 %; Immature Granulocytes Absolute 0.02 #; Lymphocytes % 21.2 % (21.2-54.2); Mean Corpuscular Volume 104.5 FL (87-102); Mean Platelet Volume 10.8 FL (9.6-12.0); Monocytes % 10.7 % (1.7-12.7); Neutrophils % 65.1 % (38.7-73.9); Platelet Count 135 T/CUMM (130-400); Red Blood Count 2.69 MC/CUMM (3.8-5.5); Red Cell Distribution Width 17.2 % (9.3-17.3); White Blood Count 4.7 T/CUMM (4-12)
[2020-11-23] MEDS: carvediloL 12.5 MG TABLET PO SCH ×2 (08:29→20:40)
[2020-11-23] MEDS: hydrALAZINE 25 MG TABLET PO SCH ×2 (08:29→20:40)
[2020-11-23] MEDS: GABAPENTIN 100 MG CAPSULE PO SCH ×3 (08:29→20:40)
[2020-11-23] MEDS: DICLOFENAC 1% GEL 100 GM TUBE TOP SCH ×3 (08:30→20:40)
[2020-11-23] MEDS: AMMONIUM LACTATE 12% LOTION 240 ML BOTTLE TOP SCH ×2 (08:30→20:40)
[2020-11-23 08:43] LABS: Calcium 10.2 MG/DL (8.5-10.1); Osmolality,Calculated 284.5 MOS/KG (273-304)
[2020-11-23] MEDS: MULTIVITAMIN (BEROCCA) TABLET PO SCH (09:10)
[2020-11-23] MEDS: HEPARIN 5,000 UNIT/1 ML VIAL SUBCUT SCH ×2 (11:56→23:38)
[2020-11-23] MEDS: DULoxetine 20 MG CAPSULE PO SCH (20:40)
[2020-11-23] MEDS ORDERED: ZALEPLON 5 MG CAPSULE PO PRN (22:12)
[2020-11-24 09:36] LABS: Basophils # 0.1 10*3/uL (0.0-0.2); Basophils % 1.1 % (0.0-0.8); Eosinophils # 0.1 10*3/uL (0.0-0.87); Eosinophils % 2.2 % (0.00-10.9); Hematocrit 27.3 VOL% (42.0-52.0); Hemoglobin 8.6 GM/DL (14.0-18.0); Lymphocytes # 0.9 10*3/uL (1.4-4.0); Lymphocytes % 19.6 % (21.2-54.2); Mean Corpuscular HGB Conc 31.5 GM/DL (32-36); Mean Corpuscular Volume 104.6 FL (87-102); Mean Platelet Volume 10.6 FL (9.6-12.0); Monocytes % 9.5 % (1.7-12.7); Neutrophils % 67.6 % (38.7-73.9); Platelet Count 144 T/CUMM (130-400); Red Blood Count 2.61 MC/CUMM (3.8-5.5); Red Cell Distribution Width 17.5 % (9.3-17.3); White Blood Count 4.5 T/CUMM (4-12)
[2020-11-24 10:00] LABS: Calcium 9.9 MG/DL (8.5-10.1); Osmolality,Calculated 293.3 MOS/KG (273-304)
[2020-11-24] MEDS: carvediloL 12.5 MG TABLET PO SCH (10:00)
[2020-11-24] MEDS: MULTIVITAMIN (BEROCCA) TABLET PO SCH (10:00)
[2020-11-24] MEDS: GABAPENTIN 100 MG CAPSULE PO SCH ×2 (10:00→14:08)
[2020-11-24] MEDS: hydrALAZINE 25 MG TABLET PO SCH (10:00)
[2020-11-24] MEDS: DICLOFENAC 1% GEL 100 GM TUBE TOP SCH ×2 (10:01→14:09)
[2020-11-24] MEDS: AMMONIUM LACTATE 12% LOTION 240 ML BOTTLE TOP SCH (10:01)
[2020-11-24 12:45] VITALS: BP 114/57
[2020-11-24] MEDS: HEPARIN 5,000 UNIT/1 ML VIAL SUBCUT SCH (14:08)
== END 2020-11-24 15:17 | DRG 640 ==
LOC: N.ED 22:36 → SUATTDRO 10-19 03:17 → N.EDINP 10-19 03:17 → N.TELES 10-19 05:18 → N.TELEN 11-15 07:51
PROVIDERS: ADMIT Hospitalist; ATTEND Family Medicine